=== PATIENT | female | born 1945 | race Two or more races ===

== ENCOUNTER 2017-11-21 12:03 | Emergency (ER) | payer OTHER ==
[~2017-11-21] VITALS: Ht 152.4 cm; Wt 78.0 kg
[~2017-11-21 12:03] MED LIST: EC-NAPROSYN500 MG; ENALAPRIL MALEA10 MG; FUROSEMIDE20 MG; GABAPENTIN300 MG; KETOCONAZOLE15 GM TP; LEVAQUIN750 MG; NAPROXEN500 M1; PENTOXIFYLLINE400 MG; SIMVASTATIN20 MG; TAMOXIFEN CITRA20 MG; TIROSINT100 MCG
[2017-11-21] MEDS ORDERED: COUMADIN4 MG (13:15)
[2017-11-21] MEDS ORDERED: ANASTROZOLE1 MG (13:15)
[2017-11-21] MEDS ORDERED: ULTRACET PO (17:15)
[2017-11-21] MEDS ORDERED: CELEBREX100 MG PO (17:15)
== END 2017-11-21 17:33 | disposition home or self-care (01) ==
LOC: ER 12:03
DX: S40.012A Contusion of left shoulder, initial encounter (principal); S50.02XA Contusion of left elbow, initial encounter; W18.39XA Other fall on same level, initial encounter; Y93.89 Activity, other specified; Y92.488 Other paved roadways as the place of occurrence of the external cause; Y99.8 Other external cause status

== ENCOUNTER 2018-07-07 09:56 | Emergency (ER) | payer OTHER ==
[~2018-07-07] VITALS: Ht 152.4 cm; Wt 76.2 kg
[~2018-07-07 09:56] MED LIST changes: +ANASTROZOLE1 MG; +CELEBREX100 MG PO; +COUMADIN4 MG; +ULTRACET PO
[2018-07-07] MEDS ORDERED: LISINOPRIL10 MG (10:28)
== END 2018-07-07 14:10 | disposition home or self-care (01) ==
LOC: ER 09:56
DX: B34.9 Viral infection, unspecified (principal)

== ENCOUNTER 2019-02-09 09:54 | Emergency (ER) | payer OTHER ==
[~2019-02-09] VITALS: Ht 152.4 cm; Wt 75.7 kg
[~2019-02-09 09:54] MED LIST changes: +LISINOPRIL10 MG
== END 2019-02-09 15:59 | disposition home or self-care (01) ==
LOC: ER 09:54
DX: R60.0 Localized edema (principal); I87.2 Venous insufficiency (chronic) (peripheral); M25.572 Pain in left ankle and joints of left foot

== ENCOUNTER 2021-04-30 13:33 | Emergency (ER) | payer OTHER ==
[~2021-04-30] VITALS: Ht 152.4 cm; Wt 75.3 kg
== END 2021-04-30 19:44 | disposition home or self-care (01) ==
LOC: ER 13:33
DX: L03.116 Cellulitis of left lower limb (principal)

== ENCOUNTER 2021-10-14 17:11 | Emergency (ER) | payer OTHER ==
[~2021-10-14] VITALS: Ht 157.5 cm; Wt 74.8 kg
== END 2021-10-14 21:37 | disposition home or self-care (01) ==
LOC: ER 17:11
DX: L03.116 Cellulitis of left lower limb (principal); M25.572 Pain in left ankle and joints of left foot

== ENCOUNTER 2024-07-14 19:52 | Emergency (ER) | payer OTHER ==
[~2024-07-14] VITALS: Ht 152.4 cm; Wt 70.3 kg
[~2024-07-14 19:52] MED LIST changes: +LIFESTYLECOMFO1 EACH {1, null}
[2024-07-14] MEDS ORDERED: OxyCODONE HCL/APAP UD (PERCOCET) PO ONE (20:30)
== END 2024-07-14 22:04 | disposition home or self-care (01) ==
LOC: ER 19:53
DX: S09.8XXA Other specified injuries of head, initial encounter (principal); W19.XXXA Unspecified fall, initial encounter; Y93.89 Activity, other specified; Y92.89 Other specified places as the place of occurrence of the external cause; Y99.8 Other external cause status; M12.519 Traumatic arthropathy, unspecified shoulder